=== PATIENT | male | born 1960 | race Two or more races ===

== ENCOUNTER → 2018-07-20 | Outpatient (CLI) | payer MEDICAID ==
[~2018-07-20] MED LIST: ATOR10TA9 PO; CARV12.52 PO; CLON0.1T22 PO; HYDR25TA6 PO; ISOS30TA21 PO; LOSA100T14 PO; NITR0.4T28 SL; Will bring list DOS
== END | disposition home or self-care (01) ==
LOC: CFH 12:32
PROVIDERS: ATTEND Internal Medicine Cardiovascular Disease
DX: I11.9 Hypertensive heart disease without heart failure (principal); E78.5 Hyperlipidemia, unspecified; Z87.891 Personal history of nicotine dependence
CPT/HCPCS: 93306

== ENCOUNTER → 2019-03-27 | Outpatient (CLI) | payer MEDICAID ==
[~2019-03-27] MED LIST changes: +OMNIPAQUE 350 MG/ML, 100ML BOTTLE ONE
== END | disposition home or self-care (01) ==
LOC: CFH 11:30
PROVIDERS: ATTEND Internal Medicine
DX: K82.9 Disease of gallbladder, unspecified (principal); I50.9 Heart failure, unspecified; K76.9 Liver disease, unspecified; Z86.73 Personal history of transient ischemic attack (TIA), and cerebral infarction without residual deficits
CPT/HCPCS: 74170; 82565; Q9967